=== PATIENT | male | born 1960 | race Caucasian/White ===

== ENCOUNTER 2020-01-06 10:16 | Emergency (ER) | payer MEDICARE, SELFPAY ==
[2020-01-06 12:24] VITALS: BP 178/97; PULSE 97; RESP 18; TEMP 36.6; O2SAT 96
--- NOTE | 2020-01-06 13:29 | ED.BACK ---
HPI - Back Pain/Injury General Chief Complaint: Back Pain/Injury Stated Complaint: back pain Time Seen by Provider: 01/06/20 12:44 Source: patient Mode of arrival: ambulatory Limitations: no limitations History of Present Illness HPI Narrative: Patient is a 59-year-old male who presents with low back pain noting that he was getting up today and felt a strain in the right lower back around the SI region with pain radiating into the thigh patient does take muscle relaxers and opiates at home for chronic neck pain and has had similar occurrence in his back has been evaluated by pain management and primary care. Patient notes aching pain that is constant worse with activity and movement presents in an uncomfortable state in no distress Related Data Home Medications Medication Instructions Recorded Confirmed alprazolam 01/06/20 baclofen mg 01/06/20 cyclobenzaprine mg 01/06/20 gabapentin 01/06/20 lisinopril 01/06/20 oxycodone-acetaminophen 01/06/20 trazodone 01/06/20 Allergies Allergy/AdvReac Type Severity Reaction Status Date / Time Penicillins Allergy Unknown Unknown Verified 01/06/20 12:43 Review of Systems Review of Systems: All systems reviewed & are unremarkable except as noted in HPI and below PMFSH Past Medical History Medical History (Updated 01/06/20 @ 13:32 by Joseph Aguilar PA-C) Chronic back pain Chronic neck pain Social History Social History (Updated 01/06/20 @ 13:31 by Joseph Aguilar PA-C) Smoking status: Never smoker Gender identity (if verbalized by the patient): Male Exam Narrative: Exam Narrative: GENERAL: Well-appearing, well-nourished, and in no acute distress. HEAD: Normocephalic, atraumatic. EYES: PERRLA and EOMI. ENT: Nares clear, no rhinorrhea or epistaxis. Mucous membranes moist. CHEST: Clear to auscultation. No respiratory distress. No wheezes rales or rhonchi HEART: Regular rate and rhythm. No murmur heard. EXTREMITIES: Normal range of motion. No edema. Midline and right lower back tenderness over the SI region SKIN: Warm, dry, no rash. NEURO: No focal deficits. Alert and oriented x3. Normal speech and gait. Motor and sensory intact and symmetrical in the extremities PSYCH: Normal mood and affect. Course Course Emergency Course: Patient with an exacerbation of low back pain given medications in the ER will be discharged home Vital Signs Vital signs: Vital Signs Temperature 97.9 F 01/06/20 12:24 Pulse Rate 97 01/06/20 12:24 Respiratory Rate 18 01/06/20 12:24 Blood Pressure 178/97 H 01/06/20 12:24 Pulse Oximetry 96 01/06/20 12:24 Temperature 97.9 F 01/06/20 12:24 Pulse Rate 97 01/06/20 12:24 Respiratory Rate 18 01/06/20 12:24 Blood Pressure 178/97 H 01/06/20 12:24 Pulse Oximetry 96 01/06/20 12:24 MDM - Back Pain/Injury MDM Narrative Medical decision making narrative: Patients pain is positional in nature and localized to back without signs of cord compression or cauda equina based on neurological exam, skeletal exam and history. No fever or other significant factors to suggest osteomyelitis or spinal epidural abscess. No symptoms or signs to suggest pain is referred from abdominal or / cardiopulmonary sources. No pulsatile masses noted on exam. Patient ambulates with steady gait and is stable for outpatient management given case findings. Discharge Plan Discharge Clinical Impression: Lumbar radiculopathy Patient Disposition: Home, Self-Care Condition: Stable Instructions: Antibiotic Form, Lumbar Radiculopathy (ED) Additional Instructions: Medications as needed and prescribed. Limit lifting and bending. You may apply heat or cold to the area as needed. Follow up with your doctor for further care in the next 7 days. Contact your doctor or return to the emergency department if you develop problems with bladder or bowel function, weakness or loss of feeling in one or both of your legs, or
[2020-01-06] MEDS: diazePAM (*CRX) 5 MG TABLET PO (13:39)
[2020-01-06] MEDS: KETOROLAC (*BKC) 60 MG/2 ML VIAL IM (13:40)
[2020-01-06] MEDS: HYDROcodone/acetaminophen (*CRX) 5-325 MG TABLET 1 TAB PO (13:40)
[2020-01-06 13:44] VITALS: BP 141/64; PULSE 77; RESP 17; O2SAT 100
== END 2020-01-06 13:45 | disposition home or self-care (01) ==
PROVIDERS: Emergency Provider Emergency Medicine; PCP Internal Medicine
DX: M54.16 Radiculopathy, lumbar region (principal)
CPT/HCPCS: 96372; 99283; A9270; J1885